=== PATIENT | male | born 2000 | race Caucasian/White ===

== ENCOUNTER 2023-03-05 00:19 | Emergency (ER) | payer OTHER ==
[2023-03-05] MEDS ORDERED: IBUPROFEN 600 MG TAB PO STA (00:47)
[2023-03-05] MEDS ORDERED: MAG HYDROX/AL HYDROX/SIMETH 30 ML, HYOSCYAMINE ELIXIR 10 ML, LIDOCAINE 2% GLYDO JELLY 1... PO STA ×3 (01:17)
[2023-03-05] MEDS ORDERED: DEXAMETHASONE SOD PHOSPHATE 10 MG/ML 1 ML VIAL IM STA (01:17)
[2023-03-05] MEDS ORDERED: ONDANSETRON 4 MG/2 ML VIAL IVP STA (03:01)
[2023-03-05] MEDS ORDERED: ACETAMINOPHEN TAB 325 MG TAB PO STA (03:01)
[2023-03-05] MEDS ORDERED: SODIUM CHLORIDE 0.9% 1,000 ML IV STA (03:01)
--- NOTE | 2023-03-05 03:21 | ED ---
Fever HPI - General Chief Complaint: Fever Stated Complaint: Chest Pain, Fever Time Seen by Provider: 03/05/23 00:46 Source: patient, RN notes reviewed Mode of arrival: ambulatory Limitations: no limitations - History of Present Illness Initial Comments: This is a 23-year-old male who presents to the emergency department for a fever and a sore throat. States that his symptoms started earlier today. His throat hurts to speak and swallow. Denies any coughing or congestion. States that the sore throat has started to go down into the top of his chest. Denies any difficulty breathing. He does report a history of strep throat. Unsure how high his fever has gotten. Denies any sick contacts. Additionally, he states that he's had problems with generalized abdominal discomfort over the last couple of weeks. States that he found a pinworm in his stool a couple of weeks ago. He has since been treating himself with [id number] medication that has been making him ill. He has not seen any pinworms in his stool since, but is concerned about still being infected. Denies any cough, dyspnea, palpitations, abdominal pain, vomiting, diarrhea, back pain, or headaches. MD Complaint: fever - Related Data Previous Rx's Medication Instructions Recorded Amoxic-Pot Clav 875-125Mg 1 tab PO Q12HR 7 Days #14 tab 03/05/23 [Augmentin 875-125] Mebendazole [Emverm chew] 100 mg PO DIRECTED #2 tab 03/05/23 Allergies Allergy/AdvReac Type Severity Reaction Status Date / Time No Known Allergies Allergy Verified 03/05/23 01:47 Review of Systems ROS Statement: Those systems with pertinent positive or pertinent negative responses have been documented in the HPI. ROS Other: All systems not noted in ROS Statement are negative. Past Medical History Past Medical History: No Reported History History of Any Multi-Drug Resistant Organisms: None Reported Past Surgical History: No Surgical Hx Reported Past Psychological History: No Psychological Hx Reported Smoking Status: Former smoker Past Alcohol Use History: Occasional Past Drug Use History: Marijuana General Exam Limitations: no limitations General appearance: alert, in no apparent distress Head exam: Present: atraumatic, normocephalic, normal inspection ENT exam: Present: other (Posterior pharyngeal erythema with 3+ tonsillar hypertrophy and exudates.) Respiratory exam: Present: normal lung sounds bilaterally. Absent: respiratory distress, wheezes, rales, rhonchi, stridor Cardiovascular Exam: Present: regular rate, normal rhythm, normal heart sounds. Absent: systolic murmur, diastolic murmur, rubs, gallop, clicks Neurological exam: Present: alert, oriented X3, CN II-XII intact Psychiatric exam: Present: normal affect, normal mood Skin exam: Present: warm, dry, intact, normal color. Absent: rash Course Vital Signs 03/05/23 03/05/23 03/05/23 00:33 01:09 03:00 Temperature 100.6 F H 100 F H 99.5 F Pulse Rate 112 H 112 H 94 Respiratory 22 18 12 Rate Blood Pressure 128/81 130/79 124/61 O2 Sat by Pulse 96 98 96 Oximetry 03/05/23 03:48 Temperature 97.9 F Pulse Rate 85 Respiratory 16 Rate Blood Pressure 114/62 O2 Sat by Pulse 97 Oximetry Medical Decision Making - Medical Decision Making This is a 23-year-old male who presents to the emergency department for a fever and sore throat. Was pt. sent in by a medical professional or institution? @ -No Did you speak to anyone other than the patient for history? @ -No Did you review nursing and triage notes? @ -There does need to be some clarification with the chest pain. This is more of a sore throat that goes down to the top of the chest as opposed to an actual chest pain. Were old charts reviewed? @ -No Differential Diagnosis? @ -Differential Fever: Pneumonia, viral URI, endocarditis, myocarditis, pericarditis, otitis, sinusitis, peritonsillar Abscess, retropharyngeal Abscess, epiglottitis, peritonitis, appendicitis, Ginger cystitis, diverticulitis, hepatitis, colitis, UTI, PID, TOA, pyelonephritis, prostatitis, epididymitis, meningitis, e ncephalitis, pulmonary embolism, CVA, thyroid storm, pancreatitis, adrenal crisis, cavernous sinus thrombosis, this is not meant to be an all-inclusive list. EKG interpreted by me (3pts min.)? @ -Not obtained X-rays interpreted by me (1pt min.)? @ -Not obtained CT interpreted by me (1pt min.)? @ -Not obtained U/S interpreted by me (1pt. min.)? @ -Not obtained What testing was considered but not performed? (CT, X-rays, U/S, labs)? Why? @ -None What meds were considered but not given? Why? @ -None Did you discuss the management of the patient with other professionals? @ -No Did you reconcile home meds? @ -No Was smoking cessation discussed for >3mins.? @ -No Was critical care preformed (if so, how long)? @ -No Were there social determinants of health that impacted care today? How? (Homelessness, low income, unemployed, alcoholism, drug addiction, transportation, low edu. Level, literacy, decrease access to med. care, residential, rehab)? @ -No Was there de-escalation of care discussed even if they declined? (Discuss DNR or withdrawal of care, Hospice)? @ -No What co-morbidities impacted this encounter? (DM, HTN, Smoking, COPD, CAD, Cancer, CVA, Hep., AIDS, mental health diagnosis, sleep apnea, morbid obesity)? @ -None Was patient admitted / discharged? @ -Discharged. Patient was febrile on arrival and subsequently given a dose of ibuprofen. Rapid strep test negative. Covid, influenza, and RSV testing were negative. GI cocktail administered for the lidocaine effect to help with the throat, as we were out of the viscous lidocaine. He did find this beneficial. He was also given a dose of Decadron to help with the swelling and inflammation in the throat. While the rapid strep test was negative, physical examination is very consistent with strep pharyngitis. While this may be viral in nature, the patient's is , and I do not want to risk of transmitting illness to her. There is also the possibility that this was a false negative. We'll thus treat the patient with a course of Augmentin. Initial dose administered in the emergency department. He was also given a liter bolus of IV fluids per his request. Prescription for mebendazole provided with dosing instructions reviewed for his concern of pinworms. Patient will otherwise continue supportive care, including alternating with ibuprofen and Tylenol as needed for any additional fevers, and follow-up with his primary care provider. Undiagnosed new problem with uncertain prognosis? @ -None Drug Therapy requiring intensive monitoring for toxicity (Heparin, Nitro, Insulin, Cardizem)? @ -None Were any procedures done? @ -None Diagnosis/symptom? @ -Fever, pharyngitis, pinworms Acute, or Chronic, or Acute on Chronic? @ -Acute Uncomplicated (without systemic symptoms) or Complicated (systemic symptoms)? @ -Uncomplicated Side effects of treatment? @ -None Exacerbation, Progression, or Severe Exacerbation] @ -Not applicable Poses a threat to life or bodily function? @ -No Return precautions reviewed in depth, the patient is instructed to return to the emergency department with any new, worsening, or concerning symptoms. Patient verbalized understanding. This case was discussed in detail with the attending ED physician, Dr. Villavicencio. Presentation, findings, and treatment plan discussed in detail as well. - Lab Data Lab Results 03/05/23 03/05/23 Range/Units 00:46 00:46 Influenza Type A (PCR) Not Detected (Not Detectd) Influenza Type B (PCR) Not Detected (Not Detectd) RSV (PCR) Not Detected (Not Detectd) SARS-CoV-2 (PCR) Not Detected (Not Detectd) Group A Strep (PCR) NOT DETECTED (Not Detectd) Disposition Clinical Impression: Pharyngitis, Fever, Pinworms Disposition: HOME SELF-CARE Instructions (If sedation given, give patient instructions): Pinworm Infection (ED), Pharyngitis (ED), Fever in Adults (ED) Additional Instructions: Return to the emergency department with any new, worsening, or concerning symptoms. Take the antibiotic as prescribed for 10 days. You will take the mebendazole as one chew, followed by a second dose 2 weeks later. Alternate with ibuprofen and Tylenol as needed for fevers and discomfort. You can also use [id number] lozenges and anesthetic spray to help with the sore throat. Follow up with your primary care provider in 1-2 days. Prescriptions: Amoxic-Pot Clav 875-125Mg [Augmentin 875-125] 1 tab PO Q12HR 7 Days #14 tab Mebendazole [Emverm chew] 100 mg PO DIRECTED #2 tab Is patient prescribed a controlled substance at d/c from ED?: No Referrals: None,Stated [Primary Care Provider] - 1-2 days
[2023-03-05 03:56] VITALS: BP 114/62; PULSE 85; RESP 16; TEMP 97.9
== END 2023-03-05 03:56 | disposition home or self-care (01) ==
LOC: EC 00:19
DX: J02.9 Acute pharyngitis, unspecified (principal); B80 Enterobiasis; Z87.891 Personal history of nicotine dependence; F12.90 Cannabis use, unspecified, uncomplicated; Z20.822 Contact with and (suspected) exposure to COVID-19
CPT/HCPCS: 87651; 87636; 99284; 96374; 96361; 96372; J1100; J2405

== ENCOUNTER 2024-02-08 22:54 | Emergency (ER) | payer OTHER ==
[2024-02-09] MEDS: NICOTINE 14MG/24HR PATCH TRANSDERM STA (00:54)
[2024-02-09 01:29] LABS: African American GFR (CKD) >90 (>60 ml/min/1.73 sqM); Anion Gap 9 mmol/L; Blood Urea Nitrogen 19 mg/dL (9-20); Calcium 9.6 mg/dL (8.4-10.2); Carbon Dioxide 24 mmol/L (22-30); Chloride 105 mmol/L (98-107); Glucose 83 mg/dL (74-99); Non-African American GFR(CKD) 84 (>60 ml/min/1.73 sqM); Potassium 3.5 mmol/L (3.5-5.1); Sodium 138 mmol/L (137-145)
[2024-02-09 01:36] LABS: Amphetamine Screen,Urine Not Detected (NotDetected); Barbiturate Screen,Urine Not Detected (NotDetected); Benzodiazepines Screen,Urine Not Detected (NotDetected); Cocaine Screen,Urine Not Detected (NotDetected); Methadone Screen, Urine Not Detected (NotDetected); Opiate Screen,Urine Not Detected (NotDetected); Oxycodone Screen, Urine Not Detected (NotDetected); Phencyclidine Screen,Urine Not Detected (NotDetected); Tricyclic Antidepressant,Urine Not Detected (NotDetected); Urn Cannabinoid Scrn Detected (NotDetected)
[2024-02-09 01:38] LABS: Basophils # (A) 0.1 k/uL (0-0.2); Basophils % (A) 1 %; Eosinophils # (A) 0.2 k/uL (0-0.7); Eosinophils % (A) 1 %; HCT 40.7 % (39.0-53.0); HGB 13.6 gm/dL (13.0-17.5); Lymphocytes # (A) 5.2 k/uL (1.0-4.8); Lymphocytes % (A) 44 %; MCH 30.4 pg (25.0-35.0); MCHC 33.4 g/dL (31.0-37.0); Mean Platelet Volume 7.7; Monocytes # (A) 0.8 k/uL (0-1.0); Monocytes % (A) 7 %; Neutrophils # (A) 5.2 k/uL (1.3-7.7); Neutrophils % (A) 44 %; Platelet Count 278 k/uL (150-450); RBC 4.48 m/uL (4.30-5.90); RDW 11.4 % (11.5-15.5); WBC 11.6 k/uL (3.8-10.6)
--- NOTE | 2024-02-09 03:11 | ED ---
General Adult HPI - General Source: patient, RN notes reviewed, old records reviewed Mode of arrival: ambulatory Limitations: no limitations <Torrey Gillis - Last Filed: 02/09/24 03:09> <Fabien Vaughn - Last Filed: 02/09/24 11:42> - General Chief complaint: Psychiatric Symptoms Stated complaint: Mental Health Time Seen by Provider: 02/08/24 23:20 - History of Present Illness Initial comments: Is a 23-year-old male who presents emergency department complaining of worsening depression and suicidal ideations. Has no specific plan but states that he has been having generic thoughts of wanting to harm self that have been worsening over the last few days. Does follow-up with [facility] but does not believe that they are helping him. Patient also complains of a one-time episode of blood in his s tool about a week ago. Has not reoccurred. Is not on blood thinners. Has no other acute complaints. Denies homicidal ideations, times complaints. Denies hallucinations. Presents for further evaluation at this time. Does have increased social stressors at this time. (Torrey Gillis) - Related Data Previous Rx's Medication Instructions Recorded Amoxic-Pot Clav 875-125Mg 1 tab PO Q12HR 7 Days #14 tab 03/05/23 [Augmentin 875-125] Mebendazole [Emverm chew] 100 mg PO DIRECTED #2 tab 03/05/23 Allergies Allergy/AdvReac Type Severity Reaction Status Date / Time No Known Allergies Allergy Verified 02/08/24 23:18 Review of Systems ROS Other: All systems not noted in ROS Statement are negative. <Torrey Gillis - Last Filed: 02/09/24 03:09> ROS Other: All systems not noted in ROS Statement are negative. <Fabien Vaughn - Last Filed: 02/09/24 11:42> ROS Statement: Those systems with pertinent positive or pertinent negative responses have been documented in the HPI. Review of Systems: CONST: Denies fever EYES: Denies blurry vision ENT: Denies nasal congestion C/V: Denies Chest pain RESP: Denies shortness of breath GI: Denies abdominal pain : Denies dysuria SKIN: Denies rash. MSK: Denies joint pain. NEURO: Denies headache (Torrey Gillis) Past Medical History Past Medical History: No Reported History History of Any Multi-Drug Resistant Organisms: None Reported Past Surgical History: No Surgical Hx Reported Past Psychological History: No Psychological Hx Reported Smoking Status: Former smoker Past Alcohol Use History: Occasional Past Drug Use History: Marijuana <Torrey Gillis - Last Filed: 02/09/24 03:09> General Exam Limitations: no limitations <Torrey Gillis - Last Filed: 02/09/24 03:09> - General Exam Comments Initial Comments: General: Appears in no acute distress. HEAD: Normal with no signs of head trauma. EYES: PERRLA, EOMI, conjunctiva normal, no discharge. ENT: Hearing grossly intact, normal oropharynx. RESPIRATORY: Clear breath sounds bilaterally. No wheezes, rales, or rhonchi. C/V: Regular rate and rhythm. S1 and S2 auscultated, no edema, peripheral pulses 2+ and intact throughout ABD: Abd is soft, nontender, nondistended EXT: Normal range of motion, no obvious deformity SKIN: No rashes or lesions observed on exposed skin. NEURO: Alert and oriented x 4. (Torrey Gillis) Course Vital Signs 02/08/24 02/09/24 02/09/24 23:09 00:18 02:18 Temperature 97.9 F Pulse Rate 86 76 62 Respiratory 20 16 20 Rate Blood Pressure 152/92 126/74 O2 Sat by Pulse 96 98 98 Oximetry 02/09/24 02/09/24 04:18 05:00 Temperature Pulse Rate 76 79 Respiratory 16 20 Rate Blood Pressure 124/66 116/70 O2 Sat by Pulse 98 98 Oximetry Medical Decision Making - Lab Data Result diagrams: 02/09/24 01:09 02/09/24 01:09 <Torrey Gillis - Last Filed: 02/09/24 03:09> - Lab Data Result diagrams: 02/09/24 01:09 02/09/24 01:09 <Fabien Vaughn - Last Filed: 02/09/24 11:42> - Medical Decision Making Was pt. sent in by a medical professional or institution (, PA, RESIDENTIAL CHILD CARE COUNSELOR, urgent care, hospital, or usp...) When possible be specific @ -No Did you speak to anyone other than the patient for history (EMS, parent, family, police, friend...)? What history was obtained from this source @ -No Did you review nursing and triage notes (agree or disagree)? Why? @ -I reviewed and agree with nursing and triage notes Were old charts reviewed (outside hosp., previous admission, EMS record, old EKG, old radiological studies, urgent care reports/EKG's, usp records)? Report findings @ -No old charts were reviewed Differential Diagnosis (chest pain, altered mental status, abdominal pain women, abdominal pain men, vaginal bleeding, weakness, fever, dyspnea, syncope, headache, dizziness, GI bleed, back pain, seizure, CVA, palpatations, mental health, musculoskeletal)? @ -Differential Mental Health Depression, anxiety, bipolar, psychosis, schizophrenia, borderline personality, situational depression, adjustment disorder, behavioral disorder, brain tumor, malingering, substance abuse, encephalopathy, medication reaction, dementia, hypothyroidism, degenerative neurologic disorder, lupus.... This is not meant to be all-inclusive list EKG interpreted by me (3pts min.). @ -None done X-rays interpreted by me (1pt min.). @ -None done CT interpreted by me (1pt min.). @ -None done U/S interpreted by me (1pt. min.). @ -None done What testing was considered but not performed or refused? (CT, X-rays, U/S, labs)? Why? @ -None What meds were considered but not given or refused? Why? @ -None Did you discuss the management of the patient with other professionals (professionals i.e. , PA, RESIDENTIAL CHILD CARE COUNSELOR, lab, RT, psych nurse, social studies teacher, machine molder, teacher, control officer, leather case finisher)? Give summary @ -EPS notified of the consult Was smoking cessation discussed for >3mins.? @ -No Was critical care preformed (if so, how long)? @ -No Were there social determinants of health that impacted care today? How? (Homelessness, low income, unemployed, alcoholism, drug addiction, transportation, low edu. Level, literacy, decrease access to med. care, senior care, rehab)? @ -No Was there de-escalation of care discussed even if they declined (Discuss DNR or withdrawal of care, Hospice)? DNR status @ -No What co-morbidities impacted this encounter? (DM, HTN, Smoking, COPD, CAD, Cancer, CVA, ARF, Chemo, Hep., AIDS, mental health diagnosis, sleep apnea, morbid obesity)? @ -None Was patient admitted / discharged? Hospital course, mention meds given and route, prescriptions, significant lab abnormalities, going to OR and other pertinent info. @ -Patient presents for psychiatric evaluation. Also complaining of some blood in his stool and one-time episode a few weeks ago. Will obtain basic labs for the patient. He was in agreement this plan. Vital signs within acceptable limits. Suicide precautions placed. Sitter ordered. BAT is 0. UDS positive for marijuana. Patient not have anemia. At this time, patient is medically cleared for evaluation by psychiatry. Disposition pending psychiatric evaluation. EPS notified of the consult. Undiagnosed new problem with uncertain prognosis? @ -No Drug Therapy requiring intensive monitoring for toxicity (Heparin, Nitro, Insulin, Cardizem)? @ -No Were any procedures done? @ -No (Torrey Gillis) Patient had been evaluated by previous physician and medically cleared. He was awaiting EPS evaluation. Patient was evaluated by EPS and was able to sign a safety plan. He was given outpatient referral and return parameters. (Fabien Vaughn) - Lab Data Lab Results 02/09/24 02/09/24 02/09/24 Range/Units 01:09 01:09 01:09 WBC 11.6 H (3.8-10.6) k/uL RBC 4.48 (4.30-5.90) m/uL Hgb 13.6 (13.0-17.5) gm/dL Hct 40.7 (39.0-53.0) % MCV 91.0 (80.0-100.0) fL MCH 30.4 (25.0-35.0) pg MCHC 33.4 (31.0-37.0) g/dL RDW 11.4 L (11.5-15.5) % Plt Count 278 (150-450) k/uL MPV 7.7 Neutrophils % 44 % Lymphocytes % 44 % Monocytes % 7 % Eosinophils % 1 % Basophils % 1 % Neutrophils # 5.2 (1.3-7.7) k/uL Lymphocytes # 5.2 H (1.0-4.8) k/uL Monocytes # 0.8 (0-1.0) k/uL Eosinophils # 0.2 (0-0.7) k/uL Basophils # 0.1 (0-0.2) k/uL Sodium 138 (137-145) mmol/L Potassium 3.5 (3.5-5.1) mmol/L Chloride 105 (98-107) mmol/L Carbon Dioxide 24 (22-30) mmol/L Anion Gap 9 mmol/L BUN 19 (9-20) mg/dL Creatinine 1.21 (0.66-1.25) mg/dL Est GFR (CKD-EPI)AfAm >90 (>60 ml/min/1.73 sqM) Est GFR (CKD-EPI)NonAf 84 (>60 ml/min/1.73 sqM) Glucose 83 (74-99) mg/dL Calcium 9.6 (8.4-10.2) mg/dL Urine Opiates Screen Not Detected (NotDetected) Ur Oxycodone Screen Not Detected (NotDetected) Urine Methadone Screen Not Detected (NotDetected) Ur Barbiturates Screen Not Detected (NotDetected) U Tricyclic Antidepress Not Detected (NotDetected) Ur Phencyclidine Scrn Not Detected (NotDetected) Ur Amphetamines Screen Not Detected (NotDetected) U Methamphetamines Scrn Not Detected (NotDetected) U Benzodiazepines Scrn Not Detected (NotDetected) Urine Cocaine Screen Not Detected (NotDetected) U Marijuana (THC) Screen Detected H (NotDetected) Disposition <Torrey Gillis - Last Filed: 02/09/24 03:09> Is patient prescribed a controlled substance at d/c from ED?: No Time of Disposition: 11:42 <Fabien Vaughn - Last Filed: 02/09/24 11:42> Clinical Impression: Depression Disposition: HOME SELF-CARE Condition: Fair Instructions (If sedation given, give patient instructions): Depression (ED) Referrals: None,Stated [Primary Care Provider] - 1-2 days
[2024-02-09] MEDS: LORazepam 1 MG TAB PO STA (03:58)
[2024-02-09 11:54] VITALS: BP 149/78; PULSE 77; RESP 18; TEMP 98.6
== END 2024-02-09 11:53 | disposition home or self-care (01) ==
LOC: EC 22:54
DX: F32.A Depression, unspecified (principal); Z87.891 Personal history of nicotine dependence
CPT/HCPCS: 82075; 36415; 80048; 85025; 80306; 99285; S4990

== ENCOUNTER 2025-03-01 17:28 | Emergency (ER) | payer OTHER ==
--- NOTE | 2025-03-01 18:09 | ED ---
Wound/Laceration HPI - General Chief Complaint: Wound/Laceration Stated Complaint: [facility]- R hand lac Time Seen by Provider: 03/01/25 18:02 Source: patient, family, RN notes reviewed Mode of arrival: ambulatory Limitations: no limitations - History of Present Illness Initial Comments: 25-year-old male presented the ER for evaluation of a laceration. Patient states he was at work just prior to arrival and was washing his hands when he accidentally cut his hand on the metal splash guard. He reports a stinging pain to laceration made worse by movement. He reports bleeding is controlled after compression. He denies any limited range of motion or paresthesias. Tetanus status unknown. Patient denies any other injuries or complaints. - Related Data Home Medications Medication Instructions Recorded Confirmed DULoxetine HCL [Cymbalta] 60 mg PO HS 04/03/24 LORazepam [Ativan] 0.5 mg PO BID 04/03/24 Allergies Allergy/AdvReac Type Severity Reaction Status Date / Time No Known Allergies Allergy Verified 03/01/25 17:48 Review of Systems ROS Statement: Those systems with pertinent positive or pertinent negative responses have been documented in the HPI. ROS Other: All systems not noted in ROS Statement are negative. Past Medical History Past Medical History: No Reported History Additional Past Medical History / Comment(s): BLOOD IN STOOL History of Any Multi-Drug Resistant Organisms: None Reported Past Surgical History: No Surgical Hx Reported Past Anesthesia/Blood Transfusion Reactions: No Reported Reaction Past Psychological History: No Psychological Hx Reported Smoking Status: Former smoker Past Alcohol Use History: Occasional Past Drug Use History: Marijuana - Past Family History Mother Family Medical History: Cancer General Exam Limitations: no limitations General appearance: alert, in no apparent distress Respiratory exam: Present: normal lung sounds bilaterally. Absent: respiratory distress, wheezes, rales, rhonchi, stridor Cardiovascular Exam: Present: regular rate, normal rhythm, normal heart sounds. Absent: systolic murmur, diastolic murmur, rubs, gallop, clicks Extremities exam: Present: normal inspection, full ROM, normal capillary refill (2+ right radial pulse.). Absent: tenderness, pedal edema, joint swelling, calf tenderness Neurological exam: Present: alert, oriented X3, CN II-XII intact Skin exam: Present: warm, dry, intact, normal color, other (2.5 cm laceration overlying right fourth MCP joint dorsal aspect. There is no active bleeding. Deep structures appears intact. No foreign bodies identified). Absent: rash Course Vital Signs 03/01/25 17:47 Temperature 98.3 F Pulse Rate 70 Respiratory 22 Rate Blood Pressure 128/62 O2 Sat by Pulse 98 Oximetry Procedures - Laceration Laceration #1 Consent Obtained: verbal consent Indication: laceration Site: hand Size (cm): 2 Description: linear Depth: simple, single layer Anesthetic Used: lidocaine 1%, without epi Anesthesia Technique: local infiltration Amount (mls): 2 Pre-repair: wound explored, irrigated extensively, deep structures intact Type of Sutures: nylon Size of Sutures: 5-0 Number of Sutures: 3 Technique: simple, interrupted Patient Tolerated Procedure: well, no complications Medical Decision Making - Medical Decision Making Was pt. sent in by a medical professional or institution ([facility], HEAD USHER, urgent care, hospital, or half-way...) When possible be specific @ -No Did you speak to anyone other than the patient for history (EMS, parent, family, police, friend...)? What history was obtained from this source @ -Significant other, bedside, aiding in HPI past medical history. Did you review nursing and triage notes (agree or disagree)? Why? @ -I reviewed and agree with nursing and triage notes Were old charts reviewed (outside hosp., previous admission, EMS record, old EKG, old radiological studies, urgent care reports/EKG's, half-way records)? Report findings @ -No old charts were reviewed Differential Diagnosis (chest pain, altered mental status, abdominal pain women, abdominal pain men, vaginal bleeding, weakness, fever, dyspnea, syncope, headache, dizziness, GI bleed, back pain, seizure, CVA, palpatations, mental health, musculoskeletal)? @ -Laceration, abrasion, contusion, avulsion, foreign body this list is not meant to be all-inclusive EKG interpreted by me (3pts min.). @ -None done X-rays interpreted by me (1pt min.). @ -None done CT interpreted by me (1pt min.). @ -None done U/S interpreted by me (1pt. min.). @ -None done What testing was considered but not performed or refused? (CT, X-rays, U/S, uma vicente)? Why? @ -X-ray considered however patient has full active range of motion with no focal bony tenderness. Patient is agreeable to forego x-ray. What meds were considered but not given or refused? Why? @ -None Did you discuss the management of the patient with other professionals (professionals i.e. , PA, HEAD USHER, lab, RT, psych nurse, clinical social work aide, mixed crop farmer, teacher, tourist information officer, senior case manager)? Give summary @ -No Was smoking cessation discussed for >3mins.? @ -No Was critical care preformed (if so, how long)? @ -No Were there social determinants of health that impacted care today? How? (Homelessness, low income, unemployed, alcoholism, drug addiction, transportation, low edu. Level, literacy, decrease access to med. care, [facility], rehab)? @ -No Was there de-escalation of care discussed even if they declined (Discuss DNR or withdrawal of care, Hospice)? DNR status @ -No What co-morbidities impacted this encounter? (DM, HTN, Smoking, COPD, CAD, Cancer, CVA, ARF, Chemo, Hep., AIDS, mental health diagnosis, sleep apnea, morbid obesity)? @ -None Was patient admitted / discharged? Hospital course, mention meds given and route, prescriptions, significant lab abnormalities, going to OR and other pertinent info. @ -Discharge. 25-year-old male presented the ER for evaluation of a laceration. Vital signs stable. Patient is neurovascularly intact. Exam remarkable for a 2.5 cm laceration noted to the dorsal aspect of left hand overlying fourth MCP joint. No foreign bodies identified. Deep structures appear intact. Patient has full active range of motion of all digits. Tetanus updated. Laceration cleaned with iodine and sterile water prior to wound closure. Wound closed with 3 simple interrupted sutures, see note above. I advised suture removal in 10 to 14 days. Suture and wound care discussed. Return parameters discussed. Patient discharged in stable condition advised follow-up closely with PCP. Patient verbally expressed understanding agreement with care plan. Case discussed with ED attending, Dr. Hurst. Undiagnosed new problem with uncertain prognosis? @ -No Drug Therapy requiring intensive monitoring for toxicity (Heparin, Nitro, Insulin, Cardizem)? @ -No Were any procedures done? @ -Yes, laceration repair Diagnosis/symptom? @ -Laceration Acute, or Chronic, or Acute on Chronic? @ -Acute Uncomplicated (without systemic symptoms) or Complicated (systemic symptoms)? @ -Uncomplicated Side effects of treatment? @ -No Exacerbation, Progression, or Severe Exacerbation? @ -No Poses a threat to life or bodily function? How? (Chest pain, [place], [place], pneumonia, PE, COPD, DKA, ARF, appy, cholecystitis, CVA, Diverticulitis, Homicidal, Suicidal, threat to staff... and all critical care pts) @ -No Disposition Clinical Impression: Laceration Disposition: HOME SELF-CARE Condition: Stable Instructions (If sedation given, give patient instructions): Care For Your Stitches (DC), Laceration (ED) Additional Instructions: Have sutures removed in 10 to 14 days. Keep area clean and dry and monitor for signs infection including surrounding redness, warmth, swelling or drainage. Avoid hydrogen peroxide or alcohol this may inhibit healing process. Follow-up with PCP. Return to the ER if any new or worsening concerns. Is patient prescribed a controlled substance at d/c from ED?: No Referrals: James Valentine MD [Primary Care Provider] - 1-2 days Time of Disposition: 18:31
[2025-03-01] MEDS: LIDOCAINE 1% INJ 10MG/ML (20 ML MDV) SQ ONE (18:14)
[2025-03-01] MEDS: DIPH,PERTUS(ACELL)TETVAC-LF 0.5 ML VIAL IM ONE (18:14)
[2025-03-01 19:13] VITALS: BP 122/60; PULSE 72; RESP 18; TEMP 98
== END 2025-03-01 19:11 | disposition home or self-care (01) ==
LOC: EC 17:28
DX: S61.411A Laceration without foreign body of right hand, initial encounter (principal); Z87.891 Personal history of nicotine dependence; Z23 Encounter for immunization; W26.9XXA Contact with unspecified sharp object(s), initial encounter; Y99.0 Civilian activity done for income or pay
CPT/HCPCS: 90715; 99282; 90471; 12001; J2003